=== PATIENT | female | born 1995 | race American Indian/Alaskan Native ===

== ENCOUNTER 2016-05-05 13:50 | Emergency (ER) | payer MEDICAID, OTHER ==
[2016-05-05 15:02] VITALS: BP 103/58
[2016-05-05] MEDS ORDERED: cefTRIAXone 1 GM, Lidocaine 1% 2.1 ML IM ONE ×2 (15:13)
[2016-05-05] MEDS ORDERED: Lidocaine 4% Top Soln 50 ML Bottle MUCMEM ONE (15:15)
--- NOTE | 2016-05-05 15:21 | EDM.PDOC ---
ED HPI ENT - General Chief Complaint: ENT Problem Stated Complaint: TOOTHACHE Time Seen by Provider: 05/05/16 15:14 Source: Reports: Patient, Family History Limitations: Reports: No limitations - History of Present Illness INITIAL COMMENTS - FREE TEXT/NARRATIVE: pt has a painful molar on the rt lower gum line. She has swelling on the rt side of her face. Timing/Duration: Reports: Day(s):, Getting worse Severity: moderate Associated symptoms: Reports: other ( pt has not been able to rest or eat. ) - Related Data Allergies/ADRs: Allergies Allergy/AdvReac Type Severity Reaction Status Date / Time Penicillins Allergy Unknown Rash Verified 05/05/16 15:09 Home Meds: Home Meds NK [No Known Home Meds] 05/05/16 [History] Past Medical History - Past Health History Medical/Surgical History: Denies Medical/Surgical History Genitourinary History: Reports: Pyelonephritis DAYCARE PROVIDER History: Reports: , Other (see below) Other OB/BYN History: HPV, c section Psychiatric History: Reports: Anxiety, Bipolar, Depression, Panic attack, PTSD Other Psychiatric History: borderline personality disorder Oncologic (Cancer) History: Reports: Other (see below) Other Oncologic History: HPV - Infectious Disease History Infectious Disease History: Reports: Chicken pox - Past Surgical History Female Surgical History: Reports: section Social & Family History - Family History Family Medical History: Noncontributory - Tobacco Use Smoking Status *Q: Light Tobacco Smoker Years of Tobacco use: 5 Packs/Tins Daily: 0.2 Used Tobacco, but Quit: No Second Hand Smoke Exposure: No - Caffeine Use Caffeine Use: Reports: Energy drinks, Soda Caffeine Use Comment: "lots" of energy drinks - Alcohol Use Days Per Week of Alcohol Use: 0 Number of Drinks Per Day: 4 Total Drinks Per Week: 0 - Recreational Drug Use Recreational Drug Use: No Drug Use in Last 12 Months: Yes Recreational Drug Type: Reports: Marijuana/Hashish Recreational Drug Use Frequency: Monthly - Living Situation & Occupation Living situation: Reports: single (lives in [place]) Occupation: disabled ED ROS ENT - Review of Systems Review Of Systems: See Below Constitutional: Reports: decreased appetite HEENT: Reports: Dental pain Respiratory: Reports: No Symptoms Cardiovascular: Reports: No symptoms Endocrine: Reports: no symptoms GI/Abdominal: Reports: No symptoms : Reports: no symptoms ED EXAM, ENT - Physical Exam Exam: See Below Text/Narrative:: pt has a painful rt sided molar-lower. Exam Limited By: Other General Appearance: anxious Ears: normal TMs Nose: normal inspection Mouth/Throat: Dental abcess, Dental pain, Dental tenderness, Other (pt has facial swelling on the rt side of her face) Head: atraumatic Neck: normal inspection Respiratory/Chest: no respiratory distress Cardiovascular: regular rate, rhythm GI/Abdominal: soft, non tender (Female) Exam: Deferred Rectal (Female) Exam: Deferred Back: normal inspection Extremities: normal inspection Course - Vital Signs Last Recorded V/S: Last Vital Signs Temp 36.5 C 05/05/16 15:01 Pulse 56 L 05/05/16 15:01 Resp 16 05/05/16 15:01 BP 103/58 L 05/05/16 15:01 Pulse Ox 99 05/05/16 15:01 - Orders/Labs/Meds Orders: Active Orders 24 hr Category Date Time Status Ketorolac [Toradol] Med 05/05/16 15:14 Once 60 mg IM ONETIME ONE Medication Orders Ketorolac Tromethamine (Toradol) 60 mg IM ONETIME ONE Stop: 05/05/16 15:15 Meds: Medications Generic Name Dose Route Start Last Admin Trade Name Freq PRN Reason Stop Dose Admin Ketorolac Tromethamine 60 mg 05/05/16 15:14 Toradol IM 05/05/16 15:15 ONETIME ONE Discontinued Medications Generic Name Dose Route Start Last Admin Trade Name Freq PRN Reason Stop Dose Admin Ceftriaxone Sodium 1 gm/ 0 gm 05/05/16 15:13 Lidocaine HCl 2.1 ml IM 05/05/16 15:14 ONETIME ONE - Re-Assessments/Exams Free Text/Narrative Re-Assessment/Exam: 05/05/16 15:18 pt was given torodol and rocephen. Departure - Departure Time of Disposition: 15:19 Disposition: Home, Self-Care 01 Condition: fair Clinical Impression: Infected tooth Forms: ED Department Discharge Care Plan Goals: apply lidocaine packs to the site. clindomycin 300mg tid, motrin 600mg tid, norco 5/325 q6h prn for pain. # 8 - My Orders Last 24 Hours: My Active Orders 05/05/16 15:14 Ketorolac [Toradol] 60 mg IM ONETIME ONE - Assessment/Plan Last 24 Hours: My Active Orders 05/05/16 15:14 Ketorolac [Toradol] 60 mg IM ONETIME ONE
[2016-05-05] MEDS: Ketorolac 60 MG/2 ML SDV IM ONE ×2 (15:41→15:51)
== END 2016-05-05 15:59 | disposition home or self-care (01) ==
LOC: JP.ED 13:50
DX: K04.7 Periapical abscess without sinus (principal); F17.210 Nicotine dependence, cigarettes, uncomplicated; Z98.890 Other specified postprocedural states; Z88.0 Allergy status to penicillin
CPT/HCPCS: 96372; 99283; A9270; J0696; J1885

== ENCOUNTER 2017-08-16 19:31 | Emergency (ER) | payer OTHER, MEDICAID ==
[2017-08-16 20:16] VITALS: BP 104/48
[2017-08-16] MEDS ORDERED: Sodium Chloride 0.9% 10 ML Syringe FLUSH PRN (20:29)
[2017-08-16] MEDS ORDERED: Prochlorperazine 5 MG in Sodium Chloride 0.9% 50 ML IV ONE (20:29)
[2017-08-16] MEDS ORDERED: Sodium Chloride 0.9% 1,000 ML IV SCH (20:30)
--- NOTE | 2017-08-16 20:34 | EDM.PDOC ---
ED HPI GENERAL MEDICAL PROBLEM - General Chief Complaint: General Stated Complaint: VOMITING LAST 2 DAYS, 9 WEEKS Time Seen by Provider: 08/16/17 20:18 Source of Information: Reports: Patient, RN Notes Reviewed History Limitations: Reports: No Limitations - History of Present Illness INITIAL COMMENTS - FREE TEXT/NARRATIVE: Here with her mother Chief complaint Vomiting in History of present illness 22-year-old female at 9 weeks gestation, second , nausea for the last week but vomiting even with fluids in the last 2 days. Decreased urine output Some lightheadedness Some right-sided abdominal discomfort. No vaginal bleeding She did cough or vomit up a small speck of blood are this evening No fever or chills No history of hyperemesis with her first , the child was adopted away, 3 years ago - Related Data Allergies Allergy/AdvReac Type Severity Reaction Status Date / Time Penicillins Allergy Unknown Rash Verified 08/16/17 20:29 amoxicillin Allergy Cannot Verified 08/16/17 20:30 Remember divalproex sodium Allergy Jaundice Verified 08/16/17 20:29 [From Depakote] Home Meds: Home Meds Pnv No.95/Ferrous Fum/Folic AC [ Multivitamin Tablet] 1 tab PO DAILY 05/01 [History] Past Medical History - Past Health History Medical/Surgical History: Denies Medical/Surgical History Genitourinary History: Reports: Pyelonephritis JINRIKISHA DRIVER History: Reports: , Other (See Below) Other JINRIKISHA DRIVER History: HPV, c section Psychiatric History: Reports: Anxiety, Bipolar, Depression, Panic Attack, PTSD Other Psychiatric History: borderline personality disorder Oncologic (Cancer) History: Reports: Other (See Below) Other Oncologic History: HPV - Infectious Disease History Infectious Disease History: Reports: Chicken Pox - Past Surgical History Female Surgical History: Reports: Section Social & Family History - Family History Family Medical History: Noncontributory - Caffeine Use Caffeine Use: Reports: Energy Drinks, Soda Caffeine Use Comment: "lots" of energy drinks - Living Situation & Occupation Living situation: Reports: Single Occupation: Disabled ED ROS GENERAL - Review of Systems Review Of Systems: See Below Constitutional: Reports: Fatigue, Decreased Appetite. Denies: Fever HEENT: Reports: Ear Pain (Bilateral). Denies: Ear Discharge Respiratory: Reports: No Symptoms Cardiovascular: Reports: No Symptoms GI/Abdominal: Reports: Abdominal Pain, Decreased Appetite, Nausea, Vomiting : Reports: Other (Urine decrease urine decreased, currently ) Musculoskeletal: Reports: No Symptoms Skin: Reports: No Symptoms Neurological: Reports: No Symptoms Immunologic: Reports: No Symptoms ED EXAM, GENERAL - Physical Exam Exam: See Below Exam Limited By: No Limitations General Appearance: Alert, Mild Distress, Other (Vital signs within normal) Eye Exam: Bilateral Eye: Normal Inspection Ears: Hearing Grossly Normal, Normal TMs, Other (Swelling and edema of the ear canals worse on the right) Nose: Normal Inspection, Normal Mucosa Throat/Mouth: Normal Oropharynx, Other (Dry mouth and tongue) Head: Atraumatic Neck: Normal Inspection, Supple Respiratory/Chest: No Respiratory Distress, Lungs Clear, No Accessory Muscle Use Cardiovascular: Normal Peripheral Pulses, Regular Rate, Rhythm GI/Abdominal: Normal Bowel Sounds, Soft, No Distention, Tender (Mild epigastric) . No: Rigid, Rebound Back Exam: Normal Inspection Extremities: Normal Inspection Neurological: Alert, Oriented, No Motor/Sensory Deficits Psychiatric: Normal Affect Skin Exam: Warm, Dry, Intact, Normal Color, No Rash Course - Vital Signs Last Recorded V/S: Last Vital Signs Temp 36.6 C 08/16/17 20:33 Pulse 76 08/16/17 20:33 Resp 16 08/16/17 20:33 BP 104/48 L 08/16/17 20:33 Pulse Ox 99 08/16/17 20:33 - Orders/Labs/Meds Orders: Active Orders 24 hr Category Date Time Status Peripheral IV Care [RC] . DIRECTED Care 08/16/17 20:29 Active BASIC METABOLIC PANEL,BMP [CHEM] Stat Lab 08/16/17 20:28 Ordered CBC W/O DIFF,HEMOGRAM [HEME] Stat Lab 08/16/17 20:28 Ordered UA W/MICROSCOPIC [URIN] Stat Lab 08/16/17 20:28 Ordered Sodium Chloride 0.9% [Normal Saline] 1,000 ml Med 08/16/17 20:30 Active IV ASDIRECTED Sodium Chloride 0.9% [Saline Flush] Med 08/16/17 20:29 Active 10 ml FLUSH ASDIRECTED PRN Peripheral IV Insertion Adult [OM.PC] Routine Oth 08/16/17 20:28 Ordered Medication Orders Sodium Chloride (Normal Saline) 1,000 mls @ 900 mls/hr IV ASDIRECTED FRANCISCO Sodium Chloride (Saline Flush) 10 ml FLUSH ASDIRECTED PRN PRN Reason: Keep Vein Open Meds: Medications Generic Name Dose Route Start Last Admin Trade Name [place] PRN Reason Stop Dose Admin Sodium Chloride 1,000 mls @ 900 mls/hr 08/16/17 20:30 Normal Saline IV ASDIRECTED FRANCISCO Sodium Chloride 10 ml 08/16/17 20:29 Saline Flush FLUSH ASDIRECTED PRN Keep Vein Open Discontinued Medications Generic Name Dose Route Start Last Admin Trade Name [place] PRN Reason Stop Dose Admin Prochlorperazine Edisylate 5 51 mls @ 150 mls/hr 08/16/17 20:29 mg/ Sodium Chloride IV 08/16/17 20:49 ONETIME ONE - Re-Assessments/Exams Free Text/Narrative Re-Assessment/Exam: 08/16/17 20:33 22-year-old female at 9 weeks gestation with vomiting in Also bilateral otitis externa Intravenous saline, Compazine 5 mg IV 08/16/17 20:55 Because of healthcare insurance restrictions, this is not her assigned hospital She does not have any emergent condition that she has to be treated with. It is her choice whether to sign off her plan and be seen here go to her preferred hospital. Nursing supervisor insulation has, discuss with the patient, she has chosen to go to her preferred hospital Departure - Departure Time of Disposition: 20:56 Disposition: Home, Self-Care 01 Clinical Impression: Nausea and vomiting during Otitis externa of both ears Qualifiers: Otitis externa type: diffuse Chronicity: acute Qualified Code(s): H60.313 - Diffuse otitis externa, bilateral - Discharge Information Instructions: Hyperemesis Gravidarum Referrals: PCP,None [Primary Care Provider] - Forms: ED Department Discharge Additional Instructions: Nausea and vomiting of Bilateral ear canal infection Because of your insurance coverage, you have chosen to be discharged. It's recommended that you seek treatment at your preferred hospital for these conditions. - My Orders Last 24 Hours: My Active Orders 08/16/17 20:28 BASIC METABOLIC PANEL,BMP [CHEM] Stat CBC W/O DIFF,HEMOGRAM [HEME] Stat UA W/MICROSCOPIC [URIN] Stat Peripheral IV Insertion Adult [OM.PC] Routine 08/16/17 20:29 Peripheral IV Care [RC] . DIRECTED Sodium Chloride 0.9% [Saline Flush] 10 ml FLUSH ASDIRECTED PRN 08/16/17 20:30 Sodium Chloride 0.9% [Normal Saline] 1,000 ml IV ASDIRECTED - Assessment/Plan Last 24 Hours: My Active Orders 08/16/17 20:28 BASIC METABOLIC PANEL,BMP [CHEM] Stat CBC W/O DIFF,HEMOGRAM [HEME] Stat UA W/MICROSCOPIC [URIN] Stat Peripheral IV Insertion Adult [OM.PC] Routine 08/16/17 20:29 Peripheral IV Care [RC] . DIRECTED Sodium Chloride 0.9% [Saline Flush] 10 ml FLUSH ASDIRECTED PRN 08/16/17 20:30 Sodium Chloride 0.9% [Normal Saline] 1,000 ml IV ASDIRECTED
== END 2017-08-16 21:03 | disposition home or self-care (01) ==
LOC: JP.ED 19:31
DX: O21.9 Vomiting of pregnancy, unspecified (principal); O99.89 Other specified diseases and conditions complicating pregnancy, childbirth and the puerperium; H60.313 Diffuse otitis externa, bilateral; Z88.1 Allergy status to other antibiotic agents; Z88.8 Allergy status to other drugs, medicaments and biological substances; Z88.0 Allergy status to penicillin; Z3A.09 9 weeks gestation of pregnancy
CPT/HCPCS: 99284

== ENCOUNTER 2018-08-26 00:57 | Emergency (ER) | payer MEDICAID, OTHER ==
[2018-08-26 01:43] VITALS: BP 148/72; PULSE 99
[2018-08-26] MEDS ORDERED: Prochlorperazine 10 MG/2 ML SDV IVPUSH ONE (01:45)
[2018-08-26] MEDS ORDERED: diphenhydrAMINE 50 MG/ML SDV IVPUSH ONE (01:45)
[2018-08-26] MEDS ORDERED: Sodium Chloride 0.9% 1,000 ML IV SCH (01:45)
[2018-08-26] MEDS ORDERED: Ketorolac 30 MG/ML SDV IVPUSH ONE (01:46)
--- NOTE | 2018-08-26 01:51 | EDM.PDOC ---
ED HPI GENERAL MEDICAL PROBLEM - General Chief Complaint: Headache Stated Complaint: headache, thorwing up Time Seen by Provider: 08/26/18 01:46 Source of Information: Reports: Patient History Limitations: Reports: No Limitations - History of Present Illness INITIAL COMMENTS - FREE TEXT/NARRATIVE: pt arrived with a rt sided headache which started about 3 pm. She states that she has been vomiting all afternoon. She has alot of headaches and rhey can vary from rt to left. Onset: Today, Other ( started at 3pm) Duration: Hour(s): Location: Reports: Head Associated Symptoms: Reports: Nausea/Vomiting Treatments HARDWOOD FLOOR INSTALLATION HELPER: Reports: Other (see below) Other Treatments [employer]ARDWOOD FLOOR INSTALLATION HELPER: unknown Headache Pain Score (Numeric/FACES): 8 - Related Data Allergies Allergy/AdvReac Type Severity Reaction Status Date / Time Penicillins Allergy Unknown Rash Verified 08/26/18 01:23 amoxicillin Allergy Cannot Verified 08/26/18 01:23 Remember divalproex sodium Allergy Jaundice Verified 08/26/18 01:23 [From Depakote] Home Meds: Home Meds Gabapentin [Neurontin] 600 mg PO TID 08/26/18 [History] buPROPion [Wellbutrin SR] 150 mg PO DAILY 08/26/18 [History] Past Medical History - Past Health History Medical/Surgical History: Denies Medical/Surgical History HEENT History: Reports: Impaired Vision Cardiovascular History: Reports: Heart Murmur Respiratory History: Reports: Asthma, Bronchitis, Recurrent Genitourinary History: Reports: Pyelonephritis DIRECTOR OF ANALYTICS History: Reports: , Other (See Below) Other DIRECTOR OF ANALYTICS History: HPV, c section Musculoskeletal History: Reports: Arthritis, Fracture Neurological History: Reports: Concussion, Migraines Psychiatric History: Reports: Anxiety, Bipolar, Depression, Panic Attack, PTSD Other Psychiatric History: borderline personality disorder Endocrine/Metabolic History: Reports: Other (See Below) Other Endocrine/Metabolic History: lupus Hematologic History: Reports: Anemia, Blood Transfusion(s) Immunologic History: Reports: SLE Oncologic (Cancer) History: Reports: Other (See Below) Other Oncologic History: HPV Dermatologic History: Reports: Eczema - Infectious Disease History Infectious Disease History: Reports: Chicken Pox - Past Surgical History Female Surgical History: Reports: Section Social & Family History - Family History Family Medical History: Noncontributory - Tobacco Use Smoking Status *Q: Current Status Unknown - Caffeine Use Caffeine Use: Reports: Soda Caffeine Use Comment: "lots" of energy drinks - Recreational Drug Use Recreational Drug Use: No - Living Situation & Occupation Living situation: Reports: Single (lives in [place] with S.O.) Occupation: Disabled ED ROS GENERAL - Review of Systems Review Of Systems: See Below Constitutional: Reports: No Symptoms HEENT: Reports: No Symptoms Respiratory: Reports: No Symptoms Cardiovascular: Reports: No Symptoms Endocrine: Reports: No Symptoms GI/Abdominal: Reports: Nausea, Vomiting : Reports: No Symptoms Musculoskeletal: Reports: No Symptoms Skin: Reports: No Symptoms Neurological: Reports: Headache Psychiatric: Reports: Agitation - Physical Exam Exam: See Below Text/Narrative:: pt arrived with a rt sided headache. She has been vmiting all afternoon. She has alot of migraine. Exam Limited By: No Limitations General Appearance: Alert, Anxious, Moderate Distress, Other (pupils are equal and reactive. ) Ears: Normal TMs Nose: Normal Inspection Throat/Mouth: Normal Inspection Head Exam: Atraumatic Neck: Normal Inspection Respiratory/Chest: No Respiratory Distress Cardiovascular: Regular Rate, Rhythm GI/Abdominal: Soft, Non-Tender (Female) Exam: Deferred Rectal (Female) Exam: Deferred Neuro Exam (Abbreviated): Alert, Oriented, Normal Cognition Back Exam: Normal Inspection Extremities: Normal Inspection Psychiatric: Anxious Course - Vital Signs Last Recorded V/S: Last Vital Signs Temp 37.0 C 08/26/18 01:30 Pulse 99 08/26/18 01:30 Resp 12 08/26/18 01:30 BP 148/72 H 08/26/18 01:30 Pulse Ox 98 08/26/18 01:30 - Orders/Labs/Meds Meds: Medications Discontinued Medications Generic Name Dose Route Start Last Admin Trade Name Chris PRN Reason Stop Dose Admin Diphenhydramine HCl 50 mg 08/26/18 01:45 08/26/18 03:17 Benadryl IVPUSH 08/26/18 01:46 Not Given ONETIME ONE Sodium Chloride 1,000 mls @ 999 mls/hr 08/26/18 01:45 Normal Saline IV ASDIRECTED FRANCISCO Ketorolac Tromethamine 30 mg 08/26/18 01:46 08/26/18 03:16 Toradol IVPUSH 08/26/18 01:47 Not Given ONETIME ONE Ketorolac Tromethamine 60 mg 08/26/18 02:28 08/26/18 03:16 Toradol IM 08/26/18 02:29 Not Given ONETIME ONE Ondansetron HCl 4 mg 08/26/18 02:54 08/26/18 02:58 Zofran Odt PO 08/26/18 02:55 4 mg ONETIME ONE Administration Oxycodone/Acetaminophen 1 tab 08/26/18 02:29 08/26/18 03:14 Percocet 325-5 Mg PO 08/26/18 02:30 1 tab ONETIME ONE Administration Prochlorperazine Edisylate 10 mg 08/26/18 01:45 08/26/18 03:17 Compazine IVPUSH 08/26/18 01:46 Not Given ONETIME ONE Prochlorperazine Edisylate 10 mg 08/26/18 02:28 08/26/18 03:17 Compazine IM 08/26/18 02:29 Not Given ONETIME ONE - Re-Assessments/Exams Free Text/Narrative Re-Assessment/Exam: 08/29/18 18:37 pt had fluids ordered and torodol and compazine which she refused. She then said the headache is better but she is nuseated. She was offered im compazine and she refused. She will be finally sent home with subling zoforan. Departure - Departure Time of Disposition: 02:55 Disposition: Home, Self-Care 01 Condition: Fair Clinical Impression: Nausea, Headache - Discharge Information Instructions: Migraine Headache, [id number], Nausea and Vomiting, Adult, Easy -to-Read Referrals: PCP,None [Primary Care Provider] - Forms: ED Department Discharge Care Plan Goals: zoforan 4 mg q6h prn for nausea.
[2018-08-26] MEDS ORDERED: Prochlorperazine 10 MG/2 ML SDV IM ONE (02:28)
[2018-08-26] MEDS ORDERED: Ketorolac 60 MG/2 ML SDV IM ONE (02:28)
[2018-08-26] MEDS ORDERED: Acetaminophen/oxyCODONE 325-5 MG Tab PO ONE (02:29)
[2018-08-26] MEDS ORDERED: Ondansetron 4 MG Tab.DIS PO ONE (02:54)
== END 2018-08-26 03:30 | disposition home or self-care (01) ==
LOC: JP.ED 00:57
DX: R51 Headache (principal); R11.2 Nausea with vomiting, unspecified; F41.9 Anxiety disorder, unspecified; F32.9 Major depressive disorder, single episode, unspecified; Z79.899 Other long term (current) drug therapy; Z88.0 Allergy status to penicillin; Z88.1 Allergy status to other antibiotic agents; Z88.8 Allergy status to other drugs, medicaments and biological substances
CPT/HCPCS: 99283; A9270; 99284

== ENCOUNTER 2018-11-22 22:39 | Emergency (ER) | payer MEDICAID ==
[2018-11-22 22:49] VITALS: BP 120/69; PULSE 114
[2018-11-22] MEDS ORDERED: Sulfamethoxazole/Trimethoprim 800-160 MG Tab PO ONE (23:19)
--- NOTE | 2018-11-22 23:19 | EDM.PDOC ---
ED HPI GENERAL MEDICAL PROBLEM - General Chief Complaint: Genitourinary Problem Stated Complaint: BACK PAIN,PAINFUL URINATION Time Seen by Provider: 11/22/18 22:59 Source of Information: Reports: Patient History Limitations: Reports: No Limitations - History of Present Illness INITIAL COMMENTS - FREE TEXT/NARRATIVE: This girl comes in complaining of low back pain and burning on urination for one day. She does not have a history of frequent UTIs. She thinks she may have had some fever to back pain Pain Score (Numeric/FACES): 8 - Related Data Allergies Allergy/AdvReac Type Severity Reaction Status Date / Time Penicillins Allergy Unknown Rash Verified 11/22/18 22:59 amoxicillin Allergy Cannot Verified 11/22/18 22:59 Remember divalproex sodium Allergy Jaundice Verified 11/22/18 22:59 [From Depakote] Home Meds: Home Meds Gabapentin [Neurontin] 600 mg PO TID 08/26/18 [History] buPROPion [Wellbutrin SR] 150 mg PO DAILY 08/26/18 [History] Past Medical History - Past Health History Medical/Surgical History: Denies Medical/Surgical History HEENT History: Reports: Impaired Vision Cardiovascular History: Reports: Heart Murmur Respiratory History: Reports: Asthma, Bronchitis, Recurrent Genitourinary History: Reports: Pyelonephritis 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 STITCH History: Reports: , Other (See Below) Other SLEEVE SETTER SAFETY STITCH History: HPV, c section Musculoskeletal History: Reports: Arthritis, Fracture Neurological History: Reports: Concussion, Migraines, Neuropathy, Peripheral Psychiatric History: Reports: Anxiety, Bipolar, Depression, Panic Attack, PTSD Other Psychiatric History: borderline personality disorder Endocrine/Metabolic History: Reports: Other (See Below) Other Endocrine/Metabolic History: lupus Hematologic History: Reports: Anemia, Blood Transfusion(s) Immunologic History: Reports: SLE Oncologic (Cancer) History: Reports: Other (See Below) Other Oncologic History: HPV Dermatologic History: Reports: Eczema - Infectious Disease History Infectious Disease History: Reports: Human Papilloma Virus (HPV) - Past Surgical History Female Surgical History: Reports: Section Social & Family History - Family History Family Medical History: Noncontributory - Tobacco Use Smoking Status *Q: Never Smoker - Caffeine Use Caffeine Use: Reports: Soda Caffeine Use Comment: "lots" of energy drinks - Recreational Drug Use Recreational Drug Use: No - Living Situation & Occupation Living situation: Reports: Single (lives in [place] with S.O.) Occupation: Disabled ED ROS GENERAL - Review of Systems Review Of Systems: ROS reveals no pertinent complaints other than HPI. ED EXAM, RENAL/ - Physical Exam Exam: See Below Exam Limited By: No Limitations General Appearance: Alert, WD/WN, No Apparent Distress Back Exam: Normal Inspection. No: CVA Tenderness (R), CVA Tenderness (L) Course - Vital Signs Last Recorded V/S: Last Vital Signs Temp 37.4 C 11/22/18 23:00 Pulse 114 H 11/22/18 23:00 Resp 16 11/22/18 23:00 BP 120/69 11/22/18 23:00 Pulse Ox 98 11/22/18 23:00 - Orders/Labs/Meds Orders: Active Orders 24 hr Category Date Time Status Sulfamethoxazole/Trimethoprim [Septra DS] Med 11/22/18 23:19 Once 1 tab PO ONETIME ONE Medication Orders Trimethoprim/Sulfamethoxazole (Septra Ds) 1 tab PO ONETIME ONE Stop: 11/22/18 23:20 Labs: Laboratory Tests 11/22/18 Range/Units 22:59 Urine Color Yellow (YELLOW) Urine Appearance Slightly cloudy A (CLEAR) Urine pH 6.5 (5.0-8.0) Ur Specific Epworth 1.020 (1.008-1.030) Urine Protein Trace H (NEGATIVE) mg/dL Urine Glucose (UA) Negative (NEGATIVE) mg/dL Urine Ketones Negative (NEGATIVE) mg/dL Urine Occult Blood Trace-intact H (NEGATIVE) Urine Nitrite Negative (NEGATIVE) Urine Bilirubin Negative (NEGATIVE) Urine Urobilinogen 2.0 H (0.2-1.0) EU/dL Ur Leukocyte Esterase Small H (NEGATIVE) Urine RBC 5-10 H (0-5) Urine WBC 30-40 H (0-5) Ur Epithelial Cells Moderate Amorphous Sediment Not seen Urine Bacteria Few Urine Mucus Few Meds: Medications Generic Name Dose Route Start Last Admin Trade Name Freq PRN Reason Stop Dose Admin Trimethoprim/Sulfamethoxazole 1 tab 11/22/18 23:19 Septra Ds PO 11/22/18 23:20 ONETIME ONE Departure - Departure Time of Disposition: 23:17 Disposition: Home, Self-Care 01 Condition: Fair Clinical Impression: UTI, Urinary tract infectious disease - Discharge Information Referrals: PCP,None [Primary Care Provider] - Forms: ED Department Discharge Additional Instructions: Take Bactrim DS (TMP/SMX) one tablet twice daily for 5 days. Be sure to drink a lot of water. Drinking water can help prevent bladder infections. Also be sure to empty your bladder immediately after having intercourse. - My Orders Last 24 Hours: My Active Orders 11/22/18 23:19 Sulfamethoxazole/Trimethoprim [Septra DS] 1 tab PO ONETIME ONE - Assessment/Plan Last 24 Hours: My Active Orders 11/22/18 23:19 Sulfamethoxazole/Trimethoprim [Septra DS] 1 tab PO ONETIME ONE
== END 2018-11-22 23:25 | disposition home or self-care (01) ==
LOC: JP.ED 22:39
DX: N39.0 Urinary tract infection, site not specified (principal); F31.9 Bipolar disorder, unspecified; F41.9 Anxiety disorder, unspecified; Z88.1 Allergy status to other antibiotic agents; Z79.899 Other long term (current) drug therapy; Z88.0 Allergy status to penicillin; Z88.8 Allergy status to other drugs, medicaments and biological substances
CPT/HCPCS: 81001; 99283; A9270-GY

== ENCOUNTER 2019-01-15 16:40 | Emergency (ER) | payer MEDICAID ==
[2019-01-15 16:54] VITALS: BP 146/80; PULSE 112
[2019-01-15] MEDS ORDERED: Ibuprofen 800 MG Tab PO ONE (17:10)
--- NOTE | 2019-01-15 17:14 | EDM.PDOC ---
ED HPI GENERAL MEDICAL PROBLEM - General Chief Complaint: ENT Problem Stated Complaint: INFECTION IN JAW Time Seen by Provider: 01/15/19 17:05 Source of Information: Reports: Patient, Family, RN Notes Reviewed History Limitations: Reports: No Limitations - History of Present Illness INITIAL COMMENTS - FREE TEXT/NARRATIVE: 23-year-old female presents emergency department today with complaint of dental pain, she has poor dentition she has had problems with dental abscess in the past unfortunately she has not seen dentistry, she has not developed any fevers but she does have swelling around the tooth - Related Data Allergies Allergy/AdvReac Type Severity Reaction Status Date / Time Penicillins Allergy Unknown Rash Verified 11/22/18 22:59 amoxicillin Allergy Cannot Verified 11/22/18 22:59 Remember divalproex sodium Allergy Jaundice Verified 11/22/18 22:59 [From Depakote] Home Meds: Home Meds Gabapentin [Neurontin] 600 mg PO TID 08/26/18 [History] buPROPion [Wellbutrin SR] 150 mg PO DAILY 08/26/18 [History] Past Medical History HEENT History: Reports: Impaired Vision Cardiovascular History: Reports: Heart Murmur Respiratory History: Reports: Asthma, Bronchitis, Recurrent Genitourinary History: Reports: Pyelonephritis 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 History: Reports: , Other (See Below) Other AFTER SCHOOL COUNSELOR History: HPV, c section Musculoskeletal History: Reports: Arthritis, Fracture Neurological History: Reports: Concussion, Migraines, Neuropathy, Peripheral Psychiatric History: Reports: Anxiety, Bipolar, Depression, Panic Attack, PTSD Other Psychiatric History: borderline personality disorder Endocrine/Metabolic History: Reports: Other (See Below) Other Endocrine/Metabolic History: lupus Hematologic History: Reports: Anemia, Blood Transfusion(s) Immunologic History: Reports: SLE Oncologic (Cancer) History: Reports: Other (See Below) Other Oncologic History: HPV Dermatologic History: Reports: Eczema - Infectious Disease History Infectious Disease History: Reports: Human Papilloma Virus (HPV) - Past Surgical History Female Surgical History: Reports: Section Social & Family History - Family History Family Medical History: Noncontributory - Tobacco Use Years of Tobacco use: 5 Packs/Tins Daily: 0.4 - Caffeine Use Caffeine Use: Reports: Soda Caffeine Use Comment: "lots" of energy drinks - Recreational Drug Use Recreational Drug Use: No - Living Situation & Occupation Living situation: Reports: Single (lives in [place] with S.O.) Occupation: Disabled ED ROS ENT - Review of Systems Review Of Systems: See Below Constitutional: Denies: Fever, Chills HEENT: Reports: Dental Pain Respiratory: Reports: No Symptoms Cardiovascular: Reports: No Symptoms ED EXAM, ENT - Physical Exam Exam: See Below Text/Narrative:: Mouth mucosa is moist and pink no erythema or actually known soft palate tongue is midline uvula is midline tooth #31 has significant decay into the root, it is tender to the touch Exam Limited By: No Limitations General Appearance: Alert, WD/WN, No Apparent Distress Respiratory/Chest: No Respiratory Distress Course - Vital Signs Last Recorded V/S: Last Vital Signs Temp 99.4 F 01/15/19 16:54 Pulse 112 H 01/15/19 16:54 Resp 13 01/15/19 16:54 BP 146/80 H 01/15/19 16:54 Pulse Ox 98 01/15/19 16:54 - Orders/Labs/Meds Meds: Medications Discontinued Medications Generic Name Dose Route Start Last Admin Trade Name Chris PRN Reason Stop Dose Admin Ibuprofen 800 mg 01/15/19 17:10 Motrin PO 01/15/19 17:11 ONETIME ONE Departure - Departure Time of Disposition: 17:14 Disposition: Home, Self-Care 01 Condition: Fair Clinical Impression: Dental abscess - Discharge Information Referrals: PCP,None [Primary Care Provider] - Additional Instructions: Please report to the dental clinic tomorrow morning at 8 AM for further evaluation - Assessment/Plan Plan: Assessment Acuity = acute Site and laterality = dental abscess tooth #31 Etiology = dental caries Manifestations = pain Location of injury = Home Lab values = none Plan Referral is set up for the dental clinic for tomorrow morning, I did offer her a shot of antibiotic but she declined, she was provided 800 mg of ibuprofen, she is currently restricted to a specific provider This note was dictated using [employer] voice recognition software please call with any questions on syntax or grammar.
== END 2019-01-15 17:22 | disposition home or self-care (01) ==
LOC: JP.ED 16:40
DX: K04.7 Periapical abscess without sinus (principal); J45.909 Unspecified asthma, uncomplicated; F41.9 Anxiety disorder, unspecified; F32.9 Major depressive disorder, single episode, unspecified; Z88.0 Allergy status to penicillin; Z88.8 Allergy status to other drugs, medicaments and biological substances; F17.210 Nicotine dependence, cigarettes, uncomplicated; Z79.899 Other long term (current) drug therapy
CPT/HCPCS: 99282; A9270

== ENCOUNTER 2019-03-28 21:04 | Emergency (ER) | payer MEDICAID ==
[2019-03-28 21:39] VITALS: BP 130/69; PULSE 99
--- NOTE | 2019-03-28 21:57 | EDM.PDOC ---
ED HPI GENERAL MEDICAL PROBLEM - General Chief Complaint: Head Injury Stated Complaint: SLIPPED AND FELL HIT BACK OF HEAD Time Seen by Provider: 03/28/19 21:11 Source of Information: Reports: Patient History Limitations: Reports: No Limitations - History of Present Illness INITIAL COMMENTS - FREE TEXT/NARRATIVE: chief complaint: fall This is a 24 year old female presents to ER for evaluation of fall. She reports has been traveling all day, just got home, was going to the grocery store, walked out of the house and slipped on ice and fell. Reports did not experience any LOC, did feel a little dizziness and nausea. Since the fall all her symptoms have resolved - she just wants to be checked out and go home. Onset: Today Onset Date: 03/28/19 Onset Time: 20:45 Duration: Hour(s):, Resolved Prior to Arrival Location: Reports: Head Quality: Reports: Other (no symptoms at this time) Improves with: Reports: None (no symptoms at this time) Worsens with: Reports: None (no symptoms at this time) Context: Reports: Other (fall on ice) Associated Symptoms: Reports: No Other Symptoms - Related Data Allergies Allergy/AdvReac Type Severity Reaction Status Date / Time Penicillins Allergy Unknown Rash Verified 03/28/19 21:40 amoxicillin Allergy Cannot Verified 03/28/19 21:40 Remember divalproex sodium Allergy Jaundice Verified 03/28/19 21:40 [From Depakote] Home Meds: Home Meds Gabapentin [Neurontin] 600 mg PO TID 08/26/18 [History] buPROPion [Wellbutrin SR] 150 mg PO DAILY 08/26/18 [History] Past Medical History - Past Health History Medical/Surgical History: Denies Medical/Surgical History HEENT History: Reports: Impaired Vision Cardiovascular History: Reports: Heart Murmur Respiratory History: Reports: Asthma, Bronchitis, Recurrent Genitourinary History: Reports: Pyelonephritis 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: , Other (See Below) 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 CUTTER MACHINE TENDER 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: 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, c section Musculoskeletal History: Reports: Arthritis, Fracture Neurological History: Reports: Concussion, Migraines, Neuropathy, Peripheral Psychiatric History: Reports: Anxiety, Bipolar, Depression, Panic Attack, PTSD Other Psychiatric History: borderline personality disorder Endocrine/Metabolic History: Reports: Other (See Below) Other Endocrine/Metabolic History: lupus Hematologic History: Reports: Anemia, Blood Transfusion(s) Immunologic History: Reports: SLE Oncologic (Cancer) History: Reports: Other (See Below) Other Oncologic History: HPV Dermatologic History: Reports: Eczema - Infectious Disease History Infectious Disease History: Reports: Human Papilloma Virus (HPV) - Past Surgical History Female Surgical History: Reports: Section Social & Family History - Family History Family Medical History: Noncontributory - Tobacco Use Smoking Status *Q: Current Every Day Smoker Years of Tobacco use: 1 Packs/Tins Daily: 0.4 - Caffeine Use Caffeine Use: Reports: Soda Caffeine Use Comment: "lots" of energy drinks - Recreational Drug Use Recreational Drug Use: No - Living Situation & Occupation Living situation: Reports: Single (lives in [place] with S.O.) Occupation: Disabled ED ROS GENERAL - Review of Systems Review Of Systems: See Below Constitutional: Reports: No Symptoms HEENT: Reports: No Symptoms Respiratory: Reports: No Symptoms Cardiovascular: Reports: No Symptoms Endocrine: Reports: No Symptoms GI/Abdominal: Reports: No Symptoms : Reports: No Symptoms Musculoskeletal: Reports: No Symptoms, Muscle Pain Neurological: Reports: No Symptoms Psychiatric: Reports: No Symptoms Hematologic/Lymphatic: Reports: No Symptoms Immunologic: Reports: No Symptoms ED EXAM, HEAD INJURY - Physical Exam Exam: See Below Exam Limited By: No Limitations General Appearance: Alert, WD/WN, No Apparent Distress Head: Atraumatic, Normocephalic, Other (unable to palpate any hematoma or injury to the area of concern.) Eyes: Bilateral Eye: EOMI, PERRL Ears: Normal External Exam, Normal Canal, Hearing Grossly Normal, Normal TMs Nose: Normal Inspection, Normal Mucousa, No Blood Throat/Mouth: Normal Inspection, Normal Lips, Normal Teeth, Normal Gums, Normal Oropharynx, Normal Voice, No Airway Compromise Neck: Non-Tender, Full Range of Motion, Normal Alignment, Normal Inspection Respiratory: No Respiratory Distress, Lungs Clear, Normal Breath Sounds, No Accessory Muscle Use, Chest Non-Tender Cardiovascular: Normal Peripheral Pulses, Regular Rate, Rhythm, No Murmur GI/Abdominal Exam: Soft, Non-Tender (Female) Exam: Deferred Rectal (Female) Exam: Deferred Back Exam: Normal Inspection, Full Range of Motion Extremities: Normal Inspection, Normal Range of Motion, Non-Tender Neurologic: No Motor/Sensory Deficits, Alert, Normal Mood/Affect, Oriented x 3 DTR: 2+: Patella (R), Patella (L) Skin: Normal Color, Warm/Dry - [place] Coma Score Best Eye Response ([place]): (4) Open Spontaneously Best Verbal Response ([place]): (5) Oriented Best Motor Response ([place]): (6) Obeys Commands Course - Vital Signs Last Recorded V/S: Last Vital Signs Temp 36.8 C 03/28/19 21:39 Pulse 99 03/28/19 21:39 Resp 16 03/28/19 21:39 BP 130/69 03/28/19 21:39 Pulse Ox 99 03/28/19 21:39 - Re-Assessments/Exams Free Text/Narrative Re-Assessment/Exam: 03/28/19 22:04 neuro and general exam negative for any injury will plan to discharge to home with head injury sheet return to ER or Clinic if has any concerns or worries. Ms. Riggins agree with plan of care. Departure - Departure Time of Disposition: 21:53 Disposition: Home, Self-Care 01 Condition: Good Clinical Impression: Fall due to ice or snow Qualifiers: Encounter type: initial encounter Qualified Code(s): W00.9XXA - Unspecified fall due to ice and snow, initial encounter - Discharge Information *PRESCRIPTION DRUG MONITORING PROGRAM REVIEWED*: Not Applicable Instructions: Head Injury, Adult, [id number] Referrals: PCP,None [Primary Care Provider] - Forms: ED Department Discharge Care Plan Goals: Fall on ice -minor head injury -neuro exam negative -Head Injury sheet Return to ER or Clinic if has any changes, nausea, vomiting, headache, changes in balance or any concerns. Sepsis Event Note - Evaluation Sepsis Screening Result: No Definite Risk - Focused Exam Vital Signs: Vital Signs Temp Pulse Resp BP Pulse Ox 03/28/19 21:39 36.8 C 99 16 130/69 99 03/28/19 21:37 36.8 C 99 16 130/69 99 Date Exam was Performed: 03/28/19 Time Exam was Performed: 21:58 - Problem List & Annotations (1) Fall due to ice or snow SNOMED Code(s): 497521415 Code(s): W00.9XXA - UNSPECIFIED FALL DUE TO ICE AND SNOW, INITIAL ENCOUNTER Status: Acute Priority: Medium Current Visit: Yes Qualifiers: Encounter type: initial encounter Qualified Code(s): W00.9XXA - Unspecified fall due to ice and snow, initial encounter - Problem List Review Problem List Initiated/Reviewed/Updated: Yes - Assessment/Plan Plan: Fall on ice -minor head injury -neuro exam negative -Head Injury sheet Return to ER or Clinic if has any changes, nausea, vomiting, headache, changes in balance or any concerns.
== END 2019-03-28 22:04 | disposition home or self-care (01) ==
LOC: JP.ED 21:04 → EEVIPCON 21:04 → JP.ED 22:04
DX: Z04.3 Encounter for examination and observation following other accident (principal); J45.909 Unspecified asthma, uncomplicated; F32.9 Major depressive disorder, single episode, unspecified; F17.210 Nicotine dependence, cigarettes, uncomplicated; Z88.0 Allergy status to penicillin; Z88.8 Allergy status to other drugs, medicaments and biological substances
CPT/HCPCS: 99282; 99283

== ENCOUNTER 2024-07-05 18:08 | Emergency (ER) | payer MEDICAID ==
[2024-07-05 18:50] VITALS: BP 110/59; PULSE 89
== END 2024-07-05 20:19 | disposition home or self-care (01) ==
LOC: JP.ED 18:08
DX: S92.231A Displaced fracture of intermediate cuneiform of right foot, initial encounter for closed fracture (principal); F17.200 Nicotine dependence, unspecified, uncomplicated; Z88.0 Allergy status to penicillin; Z88.8 Allergy status to other drugs, medicaments and biological substances; Z79.899 Other long term (current) drug therapy; X58.XXXA Exposure to other specified factors, initial encounter
CPT/HCPCS: 73630-26-RT; 73630-RT; 99283

== ENCOUNTER 2024-07-30 17:09 | Emergency (ER) | payer MEDICAID ==
[2024-07-30 19:47] VITALS: BP 132/75; PULSE 65
[2024-07-30] MEDS: Clindamycin HCl 150 MG Cap PO ONE (20:14)
== END 2024-07-30 20:15 | disposition home or self-care (01) ==
LOC: JP.ED 17:09
DX: K04.7 Periapical abscess without sinus (principal); Z88.0 Allergy status to penicillin; Z88.8 Allergy status to other drugs, medicaments and biological substances; Z79.899 Other long term (current) drug therapy
CPT/HCPCS: 99282; 99283; A9270